=== PATIENT | male | born 1970 | race Asian ===

== ENCOUNTER 2019-05-07 01:22 | Emergency (ER) | payer MEDICAID ==
[~2019-05-07] VITALS: Ht 177.8 cm; Wt 79.0 kg
[2019-05-07 02:29] LABS: BASOPHILS % 0.8 % (0.0-2.0); EOSINOPHILS % 5.6 % (0.0-5.0); HEMATOCRIT. 42.2 % (42.0-52.0); HEMOGLOBIN. 14.4 g/dL (14.0-18.0); MEAN CORPUSCULAR HEMOGLOBIN 29.7 pg (28.0-32.0); MEAN CORPUSCULAR VOLUME 87.1 fL (80.0-94.0); MEAN PLATELET VOLUME 7.8 fl (7.4-10.4); MONOCYTES % 7.7 % (2.0-8.0); NEUTROPHILS % 40.9 % (40.0-76.0); PLATELET 226 x1000/uL (130-400); RED BLOOD CELL COUNT 4.85 mill/uL (4.7-6.1); RED CELL DISTRIBUTION WIDTH 13.1 % (11.6-14.6)
[2019-05-07 02:35] LABS: CHLORIDE 109 mEq/L (98-107)
[2019-05-07 07:25] VITALS: BP 120/77
== END 2019-05-07 07:28 | disposition home or self-care (01) ==
LOC: ER 01:22
DX: R07.89 Other chest pain (principal); R94.31 Abnormal electrocardiogram [ECG] [EKG]
CPT/HCPCS: 36415; 71045; 83880; 84484; 85379; 93005; 99284

== ENCOUNTER 2020-11-25 00:35 | Emergency (ER) | payer MEDICAID ==
[~2020-11-25] VITALS: Ht 177.8 cm; Wt 82.0 kg
[2020-11-25] MEDS ORDERED: KETOROLAC 30MG/ML VIAL IV STA (01:13)
[2020-11-25] MEDS ORDERED: SODIUM CHLORIDE 0.9% 1,000 ML IV ONE (01:15)
[2020-11-25] MEDS ORDERED: DIPHENHYDRAMINE 50MG/ML VIAL IV ONE (01:15)
[2020-11-25] MEDS ORDERED: PROCHLORPERAZINE 10MG/2ML VIAL IM ONE (01:15)
[2020-11-25 02:46] VITALS: BP 132/86
== END 2020-11-25 03:04 | disposition home or self-care (01) ==
LOC: ER 00:35
DX: G43.909 Migraine, unspecified, not intractable, without status migrainosus (principal); I49.9 Cardiac arrhythmia, unspecified
CPT/HCPCS: 70450; 93005; 96361; 96372; 96374; 96375; 99284; J0780; J1200; J1885; J7030; Z7610

== ENCOUNTER → 2021-04-29 | Day surgery (SDC) | payer MEDICAID ==
[~2021-04-29] VITALS: Ht 177.8 cm; Wt 85.0 kg
[~2021-04-29] MED LIST: BUPIVACAINE HCL/PF 0.5% (5MG/ML) 10ML ONE; DEXAMETHASONE 4MG/ML 1ML VIAL ONE; GLYCOPYRROLATE 0.2 MG/ML 2ML VIAL ONE; HYDROMORPHONE HCL/PF 2MG/ML (OR) ONE; HYDROMORPHONE HCL/PF 2MG/ML CPJ IV PRN; IBUP-2029 MT; KETOROLAC 30MG/ML VIAL IV STA; KETOROLAC 30MG/ML VIAL ONE; LABETALOL 5MG/ML SYR 20 MG/4 ML SYRINGE IV PRN; MEPERIDINE HCL/PF 25MG/ML CPJ IV PRN; NEOSTIGMINE METHYLSULFATE 1MG/ML 10 ML VIAL ONE; ONDA4TAB5 MT; ONDANSETRON HCL 4MG/2ML INJ IV PRN; ONDANSETRON HCL 4MG/2ML INJ IV STA; PIPERACILLIN/TAZ 3.375G PREMIX 50 ML IV ONE; PROPOFOL 200MG/20ML VIAL IV ONE; ROCURONIUM BROMIDE 10MG/ML VIAL 5ML IV ONE; SKIN ADHESIVE 0.7 GM EA TOP ONE; SODIUM CHLORIDE 0.9% 1,000 ML IV ONE
[2021-04-29 04:07] LABS: BASOPHILS % 0.3 % (0.0-2.0); EOSINOPHILS % 1.5 % (0.0-5.0); HEMATOCRIT. 47.3 % (42.0-52.0); HEMOGLOBIN. 15.8 g/dL (14.0-18.0); LYMPHOCYTES % 10.8 % (20.0-50.0); MEAN CORPUSCULAR HEMOGLOBIN 28.8 pg (28.0-32.0); MEAN CORPUSCULAR VOLUME 86.1 fL (80.0-94.0); MEAN PLATELET VOLUME 7.8 fl (7.4-10.4); MONOCYTES % 6.3 % (2.0-8.0); NEUTROPHILS % 81.1 % (40.0-76.0); PLATELET 243 x1000/uL (130-400); RED BLOOD CELL COUNT 5.49 mill/uL (4.7-6.1); RED CELL DISTRIBUTION WIDTH 12.9 % (11.6-14.6)
[2021-04-29 04:09] LABS: CHLORIDE 106 mEq/L (98-107)
[2021-04-29 04:24] LABS: CLARITY URINE CLEAR (CLEAR); COLOR URINE YELLOW (YELLOW); KETONES URINE NEGATIVE (NEGATIVE); LEUKOCYTE ESTERASE URINE NEGATIVE (NEGATIVE); NITRITE URINE NEGATIVE (NEGATIVE); OCCULT BLOOD URINE NEGATIVE (NEGATIVE); PH URINE 5.5 (4.5-8.0); PROTEIN URINE NEGATIVE (NEGATIVE); SPECIFIC GRAVITY URINE 1.018 (1.005-1.030); UROBILINOGEN URINE 0.2 E.U./dL (0.2-1.0)
[2021-04-29 06:45] VITALS: BP 110/79
== END | disposition home or self-care (01) ==
LOC: ER 03:16 → OR 08:26 → CANBEDREQ 19:47
PROVIDERS: ATTEND Internal Medicine
DX: K35.80 Unspecified acute appendicitis (principal); E78.00 Pure hypercholesterolemia, unspecified; Z79.899 Other long term (current) drug therapy; Z98.890 Other specified postprocedural states; Z20.822 Contact with and (suspected) exposure to COVID-19
CPT/HCPCS: 36415; 44970; 74176; 80053; 81003; 83690; 85025; 87426; 88304; 99285; J1100; J1170; J1885; J2405; J2543; J2704; J2710; J3490; J7030

== ENCOUNTER 2021-05-04 19:29 | Emergency (ER) | payer MEDICAID ==
[~2021-05-04] VITALS: Ht 177.8 cm; Wt 84.0 kg
[2021-05-04] MEDS ORDERED: ONDANSETRON HCL 4MG/2ML INJ IV STA (20:49)
[2021-05-04] MEDS ORDERED: SODIUM CHLORIDE 0.9% 1,000 ML IV ONE (21:00)
[2021-05-04 22:29] LABS: BASOPHILS % 0.5 % (0.0-2.0); HEMATOCRIT. 48.4 % (42.0-52.0); HEMOGLOBIN. 16.9 g/dL (14.0-18.0); MEAN CORPUSCULAR HEMOGLOBIN 29.4 pg (28.0-32.0); MEAN CORPUSCULAR VOLUME 84.1 fL (80.0-94.0); MEAN PLATELET VOLUME 7.5 fl (7.4-10.4); MONOCYTES % 3.9 % (2.0-8.0); NEUTROPHILS % 73.6 % (40.0-76.0); PLATELET 298 x1000/uL (130-400); RED BLOOD CELL COUNT 5.76 mill/uL (4.7-6.1); RED CELL DISTRIBUTION WIDTH 12.9 % (11.6-14.6)
[2021-05-04 22:34] LABS: CHLORIDE 104 mEq/L (98-107)
[2021-05-04] MEDS ORDERED: IBUPROFEN 600MG TABLET PO ONE (23:30)
[2021-05-04] MEDS ORDERED: ONDA4TAB5 MT (23:34)
[2021-05-04] MEDS ORDERED: IBUP-2029 MT (23:35)
[2021-05-05 00:43] VITALS: BP 121/90
== END 2021-05-05 00:44 | disposition home or self-care (01) ==
LOC: ER 19:29
DX: R11.2 Nausea with vomiting, unspecified (principal); M79.18 Myalgia, other site
CPT/HCPCS: 36415; 80053; 83690; 85025; 96361; 96374; 99283; J2405; J7030

== ENCOUNTER 2022-03-18 20:48 | Emergency (ER) | payer MEDICAID ==
[~2022-03-18] VITALS: Ht 177.8 cm; Wt 82.0 kg
[~2022-03-18 20:48] MED LIST changes: -BUPIVACAINE HCL/PF 0.5% (5MG/ML) 10ML ONE; -DEXAMETHASONE 4MG/ML 1ML VIAL ONE; -GLYCOPYRROLATE 0.2 MG/ML 2ML VIAL ONE; -HYDROMORPHONE HCL/PF 2MG/ML (OR) ONE; -HYDROMORPHONE HCL/PF 2MG/ML CPJ IV PRN; -KETOROLAC 30MG/ML VIAL IV STA; -KETOROLAC 30MG/ML VIAL ONE; -LABETALOL 5MG/ML SYR 20 MG/4 ML SYRINGE IV PRN; -MEPERIDINE HCL/PF 25MG/ML CPJ IV PRN; -NEOSTIGMINE METHYLSULFATE 1MG/ML 10 ML VIAL ONE; -ONDANSETRON HCL 4MG/2ML INJ IV PRN; -ONDANSETRON HCL 4MG/2ML INJ IV STA; -PIPERACILLIN/TAZ 3.375G PREMIX 50 ML IV ONE; -PROPOFOL 200MG/20ML VIAL IV ONE; -ROCURONIUM BROMIDE 10MG/ML VIAL 5ML IV ONE; -SKIN ADHESIVE 0.7 GM EA TOP ONE; -SODIUM CHLORIDE 0.9% 1,000 ML IV ONE
[2022-03-18] MEDS ORDERED: SODIUM CHLORIDE 0.9% 1,000 ML IV ONE (22:15)
[2022-03-18] MEDS ORDERED: ACETAMINOPHEN 325MG TABLET PO ONE (22:15)
[2022-03-18] MEDS ORDERED: PROCHLORPERAZINE 10MG/2ML VIAL IV PRN (22:15)
[2022-03-18] MEDS ORDERED: MAGNESIUM 2 G PREMIX 50 ML IV ONE (22:15)
[2022-03-18] MEDS ORDERED: DIPHENHYDRAMINE 50MG/ML VIAL IV ONE (22:15)
[2022-03-19] MEDS ORDERED: MORPHINE SULFATE 4 MG/ML CPJ (NOT FOR IM USE) IV ONE (01:00)
[2022-03-19] MEDS ORDERED: KETOROLAC 30MG/ML VIAL IV ONE (03:45)
[2022-03-19 04:13] VITALS: BP 138/87
== END 2022-03-19 04:15 | disposition home or self-care (01) ==
LOC: ER 20:48
DX: G43.909 Migraine, unspecified, not intractable, without status migrainosus (principal); Z90.49 Acquired absence of other specified parts of digestive tract
CPT/HCPCS: 70450; 96365; 96375; 99284; J1200; J1885; J2270; J3475; J7030

== ENCOUNTER 2023-03-23 14:28 | Emergency (ER) | payer MEDICAID ==
[~2023-03-23] VITALS: Ht 175.3 cm; Wt 79.0 kg
[2023-03-23 14:41] VITALS: O2SAT 100
[2023-03-23] MEDS ORDERED: IBUPROFEN 600MG TABLET PO STA (14:49)
[2023-03-23 15:18] LABS: CHLORIDE 105 mEq/L (98-107)
[2023-03-23 15:26] LABS: BASOPHILS % 0.5 % (0.0-2.0); EOSINOPHILS % 1.9 % (0.0-5.0); HEMATOCRIT. 45.1 % (42.0-52.0); HEMOGLOBIN. 15.5 g/dL (14.0-18.0); LYMPHOCYTES % 25.7 % (20.0-50.0); MEAN CORPUSCULAR HEMOGLOBIN 29.5 pg (28.0-32.0); MEAN PLATELET VOLUME 8.1 fl (7.4-10.4); MONOCYTES % 5.4 % (2.0-8.0); NEUTROPHILS % 66.5 % (40.0-76.0); PLATELET 240 x1000/uL (130-400); RED BLOOD CELL COUNT 5.25 mill/uL (4.7-6.1); RED CELL DISTRIBUTION WIDTH 13.1 % (11.6-14.6)
[2023-03-23 15:27] LABS: ETHANOL BLOOD < 10 mg/dL (-10)
[2023-03-23] MEDS ORDERED: IBUPROFEN 600MG TABLET PO NR (17:00)
[2023-03-23] MEDS ORDERED: KETOROLAC 60MG/2ML VIAL IM ONE (17:30)
[2023-03-23] MEDS ORDERED: IMIT25 MT (17:31)
[2023-03-23 17:44] VITALS: BP 128/75; PULSE 65; RESP 16; TEMP 98
== END 2023-03-23 17:43 | disposition home or self-care (01) ==
LOC: ER 14:28
DX: R42 Dizziness and giddiness (principal); R51.9 Headache, unspecified; Z90.49 Acquired absence of other specified parts of digestive tract; Z86.59 Personal history of other mental and behavioral disorders
CPT/HCPCS: 80053; 80320; 85025; 36415; 70450; 93005; 96372; 99291; J1885; Z7610; G0480